=== PATIENT | female | born 1950 | race Caucasian/White ===

== ENCOUNTER → 2020-11-13 | Outpatient (CLI) | payer MEDICARE ==
[~2020-11-13] MED LIST: ASCO500 PO; ASPI81CH PO; CIPR500 PO; HYDCHL25 PO; LEVSOD75 PO; LISI20 PO; ONDA4ODT SL; Percocet 5-3251 EACH PO; THERA-D2000 UNIT PO; TRAM50 PO; ZOLP5 PO
[2020-11-13 15:08] LABS: BASOPHILS PERCENT AUTO 0 % (0-2); EOSINOPHILS ABSOLUTE AUTO 0.02 K/mm3 (0.00-0.68); EOSINOPHILS PERCENT AUTO 1 % (0-6); Hemoglobin 6.7 g/dL (11.5-16.0); IMMATURE GRAN ABSOLUTE AUTO 0.01 K/mm3 (0.00-0.10); IMMATURE GRAN PERCENT AUTO 1 % (0-1); LYMPHOCYTES ABSOLUTE AUTO 1.11 K/mm3 (0.84-5.20); LYMPHOCYTES PERCENT AUTO 54 % (21-46); MONOCYTES ABSOLUTE AUTO 0.17 K/mm3 (0.16-1.47); MONOCYTES PERCENT AUTO 8 % (4-13); Mean Corpuscular HGB 32.4 pg (26.0-34.0); Mean Corpuscular HGB Conc 31.9 g/dL (31.5-36.5); Mean Corpuscular Volume 101 fL (80-100); Mean Platelet Volume 9.6 fL (9.1-12.4); NEUTROPHILS ABSOLUTE AUTO 0.75 K/mm3 (1.96-9.15); NEUTROPHILS PERCENT AUTO 36 % (41-73); Platelet Count 72 K/mm3 (150-400); RDW Coefficient Variation 14.5 % (11.7-14.2); RDW Standard Deviation 52.9 fL (35.1-46.3); Red Blood Cell Count 2.07 M/mm3 (3.80-5.20); White Blood Cell Count 2.06 K/mm3 (4.00-11.30)
[2020-11-13 15:13] LABS: Albumin, Blood 3.6 g/dL (3.4-5.0); Albumin/Globulin Ratio 1.1 (0.8-1.8); Bilirubin, Total 0.7 mg/dL (0.1-1.0); Bun/Creatinine Ratio 19.3 (12.0-20.0); Calcium, Blood 9.4 mg/dL (8.5-10.1); Creatinine, Blood 1.92 mg/dL (0.40-1.00); Globulin, Blood 3.3 g/dL (2.2-4.0); Potassium, Blood 4.3 mmol/L (3.5-5.5); Total Protein, Blood 6.9 g/dL (6.4-8.2)
== END | disposition home or self-care (01) ==
LOC: LAB SHORT 14:13 → LAB 14:13
PROVIDERS: Internal Medicine Hematology & Oncology
DX: D46.9 Myelodysplastic syndrome, unspecified (principal)
CPT/HCPCS: 80053; 85025

== ENCOUNTER 2020-11-17 00:51 | Day surgery (SDC) | payer MEDICARE ==
[2020-11-15 13:37] LABS: BASOPHILS PERCENT AUTO 0 % (0-2); EOSINOPHILS ABSOLUTE AUTO 0.01 K/mm3 (0.00-0.68); EOSINOPHILS PERCENT AUTO 0 % (0-6); Hematocrit 21.4 % (33.0-51.0); Hemoglobin 6.8 g/dL (11.5-16.0); IMMATURE GRAN ABSOLUTE AUTO 0.03 K/mm3 (0.00-0.10); IMMATURE GRAN PERCENT AUTO 1 % (0-1); LYMPHOCYTES ABSOLUTE AUTO 1.42 K/mm3 (0.84-5.20); LYMPHOCYTES PERCENT AUTO 56 % (21-46); MONOCYTES ABSOLUTE AUTO 0.13 K/mm3 (0.16-1.47); MONOCYTES PERCENT AUTO 5 % (4-13); Mean Corpuscular HGB 32.7 pg (26.0-34.0); Mean Corpuscular HGB Conc 31.8 g/dL (31.5-36.5); Mean Corpuscular Volume 103 fL (80-100); Mean Platelet Volume 9.9 fL (9.1-12.4); NEUTROPHILS ABSOLUTE AUTO 0.97 K/mm3 (1.96-9.15); NEUTROPHILS PERCENT AUTO 38 % (41-73); Platelet Count 64 K/mm3 (150-400); RDW Coefficient Variation 14.6 % (11.7-14.2); RDW Standard Deviation 52.9 fL (35.1-46.3); Red Blood Cell Count 2.08 M/mm3 (3.80-5.20); White Blood Cell Count 2.56 K/mm3 (4.00-11.30)
[~2020-11-17 00:51] MED LIST changes: -ASCO500 PO; -CIPR500 PO; -THERA-D2000 UNIT PO
[2020-11-17] MEDS ORDERED: THERA-D2000 UNIT PO (13:54)
[2020-11-27] MEDS ORDERED: ASCO500 PO (08:37)
[2020-11-27] MEDS ORDERED: CIPR500 PO (08:37)
[2020-11-27] MEDS ORDERED: ZOLP5 PO (08:39)
== END 2020-11-17 17:20 | disposition home or self-care (01) ==
LOC: ATC 00:51 → EDSTATUS 13:30 → ATC 13:30
PROVIDERS: Internal Medicine Hematology & Oncology
DX: D46.22 Refractory anemia with excess of blasts 2 (principal); I10 Essential (primary) hypertension
CPT/HCPCS: 36415; 36430; 85025; 86850; 86900; 86901; 86923; J7050; P9016

== ENCOUNTER 2020-11-30 08:49 | Day surgery (SDC) | payer MEDICARE ==
[~2020-11-30] VITALS: Ht 170.2 cm; Wt 81.3 kg
[~2020-11-30 08:49] MED LIST changes: +ASCO500 PO; +CIPR500 PO; +THERA-D2000 UNIT PO
--- NOTE | 2020-11-30 09:37 | NUR ---
Ambulatory in Day Surgery History, Chart, Medications and Allergies reviewed before start of procedure. Lungs clear T/O to Auscultation. Pre-Op teaching done. Pt verbalizes understanding.
--- NOTE | 2020-11-30 11:13 | NUR ---
11/30/20 1113 RAM[place]NMIKIE PT NOTED BRUISING TO LEFT OUTER THIGH PRIOR TO PROCEDURE.
--- NOTE | 2020-11-30 12:35 | NUR ---
Patient up to Ambulate independently. Gait steady. Discharge instructions reviewed with patient. Patient verbalizes understanding. Copy given to patient to take home. Dressing to procedure site clean, dry to right chest wall. Right jugular vein with bandaid, oozing red blood, changed to clean bandaid. Some bruising noted to sight. Patient States Post-Procedure ride home has been arranged. Discharged via wheelchair to private car for ride home.
== END 2020-11-30 12:33 | disposition home or self-care (01) ==
LOC: ORSCMMR 08:49 → ORD 10:30 → ORSCMMR 12:33
PROVIDERS: Surgery
PROC: B5131ZA Fluoroscopy of Right Jugular Veins using Low Osmolar Contrast, Guidance (ICD-10-PCS; principal; 2020-11-30 10:30)
PROC: 05HM33Z Insertion of Infusion Device into Right Internal Jugular Vein, Percutaneous Approach (ICD-10-PCS; principal; 2020-11-30 10:30)
DX: D46.9 Myelodysplastic syndrome, unspecified (principal); I10 Essential (primary) hypertension; N18.9 Chronic kidney disease, unspecified; J45.909 Unspecified asthma, uncomplicated; Z79.899 Other long term (current) drug therapy
CPT/HCPCS: 77001; C1788; J1100; J1642; J2250; J2405; J2704; J3010; J7120

== ENCOUNTER 2021-01-02 00:18 | Day surgery (SDC) | payer MEDICARE ==
--- NOTE | 2021-01-02 10:42 | NUR ---
PT GOING TO DR. ZACARIAS OFFICE FOR TREATMENT. PORT FLUSHED WITH 20ML OF NS. DID NOT USE HEPARIN DUE TO INFUSION AT DR. ZACARIAS OFFICE. CALLED AND SPOKE WITH CORY AT DR. ZACARIAS OFFICE. INFORMED OF LOW BP DURING TRANSFUSION. PT ASYMTOMATIC AND ALSO INFORMED THAT PORT STILL ACCESSED AND NEEDS FLUSHED.
== END 2021-01-02 10:39 | disposition home or self-care (01) ==
LOC: ATC 00:18
DX: D61.818 Other pancytopenia (principal); D46.22 Refractory anemia with excess of blasts 2; E03.9 Hypothyroidism, unspecified; I10 Essential (primary) hypertension
CPT/HCPCS: 86850; 86900; 86901; 86923; J1642; J7050; P9016

== ENCOUNTER → 2021-02-09 | Outpatient (CLI) | payer MEDICARE ==
[2021-02-09 17:21] LABS: BASOPHILS PERCENT AUTO 0 % (0-2); EOSINOPHILS ABSOLUTE AUTO 0.03 K/mm3 (0.00-0.68); EOSINOPHILS PERCENT AUTO 2 % (0-6); Hematocrit 29.6 % (33.0-51.0); Hemoglobin 9.4 g/dL (11.5-16.0); Mean Corpuscular HGB 33.1 pg (26.0-34.0); Mean Corpuscular HGB Conc 31.8 g/dL (31.5-36.5); Mean Corpuscular Volume 104 fL (80-100); Mean Platelet Volume 12.3 fL (9.1-12.4); Platelet Count 118 K/mm3 (150-400); RDW Coefficient Variation 15.8 % (11.7-14.2); RDW Standard Deviation 60.5 fL (35.1-46.3); Red Blood Cell Count 2.84 M/mm3 (3.80-5.20); White Blood Cell Count 1.65 K/mm3 (4.00-11.30)
[2021-02-09 17:24] LABS: IMMATURE GRAN ABSOLUTE AUTO 0.01 K/mm3 (0.00-0.10); IMMATURE GRAN PERCENT AUTO 1 % (0-1); LYMPHOCYTES PERCENT AUTO 55 % (21-46); MONOCYTES ABSOLUTE AUTO 0.22 K/mm3 (0.16-1.47); MONOCYTES PERCENT AUTO 13 % (4-13); NEUTROPHILS ABSOLUTE AUTO 0.49 K/mm3 (1.96-9.15); NEUTROPHILS PERCENT AUTO 30 % (41-73)
[2021-02-09 18:08] LABS: BASOPHILS ABSOLUTE MAN 0.03 K/mm3 (0.00-0.23); BASOPHILS PERCENT MAN 2 % (0-2); EOSINOPHILS ABSOLUTE MAN 0.03 K/mm3 (0.00-0.68); EOSINOPHILS PERCENT MAN 2 % (0-6); LYMPHOCYTES % ATYPICAL MANUAL 6 % (0-0); LYMPHOCYTES ABSOLUTE MAN 0.97 K/mm3 (0.84-5.20); LYMPHOCYTES PERCENT MAN 53 % (21-46); MONOCYTES ABSOLUTE MAN 0.11 K/mm3 (0.16-1.47); MONOCYTES PERCENT MAN 7 % (4-13); NEUTROPHILS ABSOLUTE MAN 0.49 K/mm3 (1.96-9.15); SEG NEUTROPHILS PERCENT MAN 30 % (41-73); TOTAL CELLS COUNTED 100
== END | disposition home or self-care (01) ==
LOC: LAB SHORT 16:27 → LAB 16:27
PROVIDERS: Physician Assistant
DX: R53.83 Other fatigue (principal)
CPT/HCPCS: 85025

== ENCOUNTER → 2021-08-20 | Outpatient (CLI) | payer MEDICARE ==
[2021-08-20 14:15] LABS: BASOPHILS ABSOLUTE AUTO 0.03 K/mm3 (0.00-0.23); BASOPHILS PERCENT AUTO 1 % (0-2); EOSINOPHILS ABSOLUTE AUTO 0.02 K/mm3 (0.00-0.68); EOSINOPHILS PERCENT AUTO 1 % (0-6); Hematocrit 35.5 % (33.0-51.0); Hemoglobin 11.6 g/dL (11.5-16.0); IMMATURE GRAN ABSOLUTE AUTO 0.01 K/mm3 (0.00-0.10); IMMATURE GRAN PERCENT AUTO 0 % (0-1); LYMPHOCYTES ABSOLUTE AUTO 1.31 K/mm3 (0.84-5.20); LYMPHOCYTES PERCENT AUTO 55 % (21-46); MONOCYTES ABSOLUTE AUTO 0.23 K/mm3 (0.16-1.47); MONOCYTES PERCENT AUTO 10 % (4-13); Mean Corpuscular HGB 31.3 pg (26.0-34.0); Mean Corpuscular HGB Conc 32.7 g/dL (31.5-36.5); Mean Corpuscular Volume 96 fL (80-100); Mean Platelet Volume 11.8 fL (9.1-12.4); NEUTROPHILS ABSOLUTE AUTO 0.79 K/mm3 (1.96-9.15); NEUTROPHILS PERCENT AUTO 33 % (41-73); Platelet Count 249 K/mm3 (150-400); RDW Coefficient Variation 16.2 % (11.7-14.2); RDW Standard Deviation 57.2 fL (35.1-46.3); Red Blood Cell Count 3.71 M/mm3 (3.80-5.20); White Blood Cell Count 2.39 K/mm3 (4.00-11.30)
[2021-08-20 14:29] LABS: Albumin, Blood 3.7 g/dL (3.4-5.0); Albumin/Globulin Ratio 1.1 (0.8-1.8); Bilirubin, Total 0.6 mg/dL (0.1-1.0); Bun/Creatinine Ratio 23.1 (12.0-20.0); Calcium, Blood 9.9 mg/dL (8.5-10.1); Creatinine, Blood 1.43 mg/dL (0.40-1.00); Globulin, Blood 3.5 g/dL (2.2-4.0); Potassium, Blood 4.1 mmol/L (3.5-5.5); Total Protein, Blood 7.2 g/dL (6.4-8.2)
== END ==
LOC: LAB SHORT 13:42 → LAB 13:42
PROVIDERS: Internal Medicine Hematology & Oncology
DX: D46.9 Myelodysplastic syndrome, unspecified (principal)
CPT/HCPCS: 80053; 85025

== ENCOUNTER 2022-12-25 02:05 | Day surgery (SDC) | payer MEDICARE ==
[2022-12-25] MEDS ORDERED: TRAMADOL HCL 50 MG (13:41)
[2022-12-25] MEDS ORDERED: ONDA4ODT MM (13:41)
[2022-12-25] MEDS ORDERED: OMEP20ER PO (13:42)
== END 2022-12-25 16:45 | disposition home or self-care (01) ==
LOC: ATC 02:05
DX: D46.22 Refractory anemia with excess of blasts 2 (principal); E03.9 Hypothyroidism, unspecified; I10 Essential (primary) hypertension; C73 Malignant neoplasm of thyroid gland
CPT/HCPCS: 36430; 86850; 86900; 86901; 86923; J1642; J7050; P9016

== ENCOUNTER 2023-01-31 07:30 | Day surgery (SDC) | payer MEDICARE ==
[2023-01-31] VITALS (7 sets, daily range): BP systolic 105–131; BP diastolic 55–72
[~2023-01-31 07:30] MED LIST changes: +OMEP20ER PO; +ONDA4ODT MM; +TRAMADOL HCL 50 MG
== END 2023-01-31 11:15 | disposition home or self-care (01) ==
LOC: ATC 07:30
DX: D46.22 Refractory anemia with excess of blasts 2 (principal)
CPT/HCPCS: 36415; 36430; 86850; 86900; 86901; 86923; J1642; J7050; P9016

== ENCOUNTER 2023-05-09 01:09 | Day surgery (SDC) | payer MEDICARE ==
[2023-05-08 11:10] LABS: Hemoglobin 6.4 g/dL (11.5-16.0); Mean Corpuscular Volume 106 fL (80-100); Mean Platelet Volume 10.8 fL (9.1-12.4); RDW Coefficient Variation 15.3 % (11.7-14.2); RDW Standard Deviation 59.3 fL (35.1-46.3); Red Blood Cell Count 1.88 M/mm3 (3.80-5.20)
[2023-05-08 11:23] LABS: Albumin/Globulin Ratio 1.3 (0.8-1.8); Bilirubin, Total 0.7 mg/dL (0.1-1.0); Bun/Creatinine Ratio 23.5 (12.0-20.0); Calcium, Blood 9.8 mg/dL (8.5-10.1); Creatinine, Blood 1.62 mg/dL (0.40-1.00); Globulin, Blood 3.1 g/dL (2.2-4.0); Potassium, Blood 4.2 mmol/L (3.5-5.5); Total Protein, Blood 7.1 g/dL (6.4-8.2)
[2023-05-08 11:35] LABS: Platelet Count 43 K/mm3 (150-400); White Blood Cell Count 0.83 K/mm3 (4.00-11.30)
[2023-05-08 11:58] LABS: BASOPHILS PERCENT MAN 0 % (0-2); EOSINOPHILS PERCENT MAN 0 % (0-6); LYMPHOCYTES ABSOLUTE MAN 0.66 K/mm3 (0.84-5.20); LYMPHOCYTES PERCENT MAN 80 % (21-46); MONOCYTES PERCENT MAN 0 % (4-13); NEUTROPHILS ABSOLUTE MAN 0.16 K/mm3 (1.96-9.15); SEG NEUTROPHILS PERCENT MAN 20 % (41-73); TOTAL CELLS COUNTED 25
[2023-05-08 18:33] LABS: Hematocrit 19.8 % (33.0-51.0); Hemoglobin 6.5 g/dL (11.5-16.0); Mean Corpuscular HGB 34.8 pg (26.0-34.0); Mean Corpuscular HGB Conc 32.8 g/dL (31.5-36.5); Mean Corpuscular Volume 106 fL (80-100); Mean Platelet Volume 12.5 fL (9.1-12.4); RDW Coefficient Variation 15.1 % (11.7-14.2); RDW Standard Deviation 58.7 fL (35.1-46.3); Red Blood Cell Count 1.87 M/mm3 (3.80-5.20); White Blood Cell Count 1.04 K/mm3 (4.00-11.30)
[2023-05-08 18:50] LABS: Albumin/Globulin Ratio 1.1 (0.8-1.8); Bilirubin, Total 0.5 mg/dL (0.1-1.0); Bun/Creatinine Ratio 23.1 (12.0-20.0); Calcium, Blood 10.1 mg/dL (8.5-10.1); Creatinine, Blood 1.6 mg/dL (0.40-1.00); Globulin, Blood 3.5 g/dL (2.2-4.0); Potassium, Blood 4.1 mmol/L (3.5-5.5); Total Protein, Blood 7.5 g/dL (6.4-8.2)
[2023-05-08 18:53] LABS: Platelet Count 41 K/mm3 (150-400)
[2023-05-08 19:05] LABS: BASOPHILS ABSOLUTE MAN 0.01 K/mm3 (0.00-0.23); BASOPHILS PERCENT MAN 1 % (0-2); EOSINOPHILS PERCENT MAN 0 % (0-6); LYMPHOCYTES ABSOLUTE MAN 0.93 K/mm3 (0.84-5.20); LYMPHOCYTES PERCENT MAN 90 % (21-46); MONOCYTES ABSOLUTE MAN 0.01 K/mm3 (0.16-1.47); MONOCYTES PERCENT MAN 1 % (4-13); NEUTROPHILS ABSOLUTE MAN 0.08 K/mm3 (1.96-9.15); SEG NEUTROPHILS PERCENT MAN 8 % (41-73); TOTAL CELLS COUNTED 100
[2023-05-09] VITALS (7 sets, daily range): BP systolic 105–139; BP diastolic 53–60
== END 2023-05-09 11:05 | disposition home or self-care (01) ==
LOC: ATC 01:09 → EDSTATUS 07:30 → ATC 07:30
PROVIDERS: Internal Medicine Hematology & Oncology
DX: D46.22 Refractory anemia with excess of blasts 2 (principal); I10 Essential (primary) hypertension; E03.9 Hypothyroidism, unspecified; Z79.899 Other long term (current) drug therapy
CPT/HCPCS: 36415; 36430; 80053; 85025; 86850; 86900; 86901; 86923; J1642; J7050; P9016

== ENCOUNTER 2023-06-05 01:57 | Day surgery (SDC) | payer MEDICARE ==
[2023-06-05] VITALS (7 sets, daily range): BP systolic 98–142; BP diastolic 52–83
[2023-06-05] MEDS ORDERED: ACYC400 PO (16:22)
[2023-06-05] MEDS ORDERED: DIFLUCAN100 MG PO (16:22)
== END 2023-06-05 16:56 | disposition home or self-care (01) ==
LOC: ATC 01:57
DX: D46.22 Refractory anemia with excess of blasts 2 (principal); I10 Essential (primary) hypertension; E03.9 Hypothyroidism, unspecified; Z79.890 Hormone replacement therapy; Z79.899 Other long term (current) drug therapy
CPT/HCPCS: 36430; 86850; 86900; 86901; 86923; J1642; J7050; P9016

== ENCOUNTER 2023-07-08 11:30 | Day surgery (SDC) | payer MEDICARE ==
[2023-07-07 11:45] LABS: BASOPHILS PERCENT AUTO 0 % (0-2); EOSINOPHILS PERCENT AUTO 0 % (0-6); Hemoglobin 7.2 g/dL (11.5-16.0); IMMATURE GRAN PERCENT AUTO 0 % (0-1); LYMPHOCYTES ABSOLUTE AUTO 0.66 K/mm3 (0.84-5.20); LYMPHOCYTES PERCENT AUTO 65 % (21-46); MONOCYTES ABSOLUTE AUTO 0.05 K/mm3 (0.16-1.47); MONOCYTES PERCENT AUTO 5 % (4-13); Mean Corpuscular HGB 33.3 pg (26.0-34.0); Mean Corpuscular HGB Conc 34.3 g/dL (31.5-36.5); Mean Corpuscular Volume 97 fL (80-100); Mean Platelet Volume 12.2 fL (9.1-12.4); NEUTROPHILS PERCENT AUTO 30 % (41-73); RDW Coefficient Variation 18.9 % (11.7-14.2); RDW Standard Deviation 66.6 fL (35.1-46.3); Red Blood Cell Count 2.16 M/mm3 (3.80-5.20); White Blood Cell Count 1.01 K/mm3 (4.00-11.30)
[2023-07-07 11:56] LABS: Platelet Count 25 K/mm3 (150-400)
[~2023-07-08 11:30] MED LIST changes: +ACYC400 PO; +DIFLUCAN100 MG PO
[2023-07-08 14:40] VITALS: BP 117/58
[2023-07-08 14:59] VITALS: BP 105/61
[2023-07-08 15:57] VITALS: BP 119/57
[2023-07-08 16:27] VITALS: BP 123/68
== END 2023-07-08 16:30 | disposition home or self-care (01) ==
LOC: ATC 11:30 → EDSTATUS 11:31 → ATC 16:30
PROVIDERS: Internal Medicine Hematology & Oncology
DX: D46.22 Refractory anemia with excess of blasts 2 (principal)
CPT/HCPCS: 36415; 36430; 85025; 86850; 86900; 86901; 86923; J1642; J7050; P9016

== ENCOUNTER 2023-07-31 04:52 | Day surgery (SDC) | payer MEDICARE ==
[2023-07-30 16:02] LABS: BASOPHILS PERCENT AUTO 0 % (0-2); EOSINOPHILS ABSOLUTE AUTO 0.01 K/mm3 (0.00-0.68); EOSINOPHILS PERCENT AUTO 1 % (0-6); Hematocrit 21.5 % (33.0-51.0); Mean Corpuscular HGB 33.7 pg (26.0-34.0); Mean Corpuscular HGB Conc 32.6 g/dL (31.5-36.5); Mean Corpuscular Volume 103 fL (80-100); Mean Platelet Volume 11.1 fL (9.1-12.4); RDW Coefficient Variation 20.7 % (11.7-14.2); RDW Standard Deviation 77.3 fL (35.1-46.3); Red Blood Cell Count 2.08 M/mm3 (3.80-5.20); White Blood Cell Count 1.34 K/mm3 (4.00-11.30)
[2023-07-30 16:05] LABS: IMMATURE GRAN PERCENT AUTO 0 % (0-1); LYMPHOCYTES ABSOLUTE AUTO 0.93 K/mm3 (0.84-5.20); LYMPHOCYTES PERCENT AUTO 69 % (21-46); MONOCYTES ABSOLUTE AUTO 0.08 K/mm3 (0.16-1.47); MONOCYTES PERCENT AUTO 6 % (4-13); NEUTROPHILS ABSOLUTE AUTO 0.32 K/mm3 (1.96-9.15); NEUTROPHILS PERCENT AUTO 24 % (41-73)
[2023-07-30 16:06] LABS: Platelet Count 21 K/mm3 (150-400)
[2023-07-30 16:11] LABS: Albumin/Globulin Ratio 1.2 (0.8-1.8); Bilirubin, Total 0.4 mg/dL (0.1-1.0); Bun/Creatinine Ratio 21.8 (12.0-20.0); Calcium, Blood 9.9 mg/dL (8.5-10.1); Creatinine, Blood 1.74 mg/dL (0.40-1.00); Globulin, Blood 3.3 g/dL (2.2-4.0); Potassium, Blood 4.5 mmol/L (3.5-5.5); Total Protein, Blood 7.3 g/dL (6.4-8.2)
[2023-07-31 14:17] VITALS: BP 138/66
[2023-07-31 14:36] VITALS: BP 98/53
[2023-07-31 15:39] VITALS: BP 104/56
[2023-07-31 16:14] VITALS: BP 118/62
== END 2023-07-31 16:13 | disposition home or self-care (01) ==
LOC: ATC 04:52 → EDSTATUS 14:00 → ATC 16:13
PROVIDERS: Internal Medicine Hematology & Oncology
DX: D46.22 Refractory anemia with excess of blasts 2 (principal); E03.9 Hypothyroidism, unspecified; I10 Essential (primary) hypertension; Z79.899 Other long term (current) drug therapy; Z79.890 Hormone replacement therapy
CPT/HCPCS: 36415; 36430; 80053; 85025; 86850; 86900; 86901; 86923; J1642; J7050; P9016

== ENCOUNTER → 2023-08-27 | Outpatient (CLI) | payer MEDICARE ==
[2023-08-31 09:31] LABS: PANCREATIC ELASTASE,FECAL >800 ug/g (>=100)
== END ==
LOC: LAB SHORT 11:49 → LAB 11:49
PROVIDERS: Physician Assistant Medical
DX: R14.0 Abdominal distension (gaseous) (principal)
CPT/HCPCS: 82653; 87338

== ENCOUNTER 2023-08-29 03:04 | Day surgery (SDC) | payer MEDICARE ==
[2023-08-27 12:01] LABS: Hematocrit 21.5 % (33.0-51.0); Hemoglobin 7.2 g/dL (11.5-16.0); Mean Corpuscular HGB 34.6 pg (26.0-34.0); Mean Corpuscular HGB Conc 33.5 g/dL (31.5-36.5); Mean Corpuscular Volume 103 fL (80-100); RDW Coefficient Variation 19.1 % (11.7-14.2); RDW Standard Deviation 72.6 fL (35.1-46.3); Red Blood Cell Count 2.08 M/mm3 (3.80-5.20)
[2023-08-27 12:22] LABS: White Blood Cell Count 0.95 K/mm3 (4.00-11.30)
[2023-08-27 12:23] LABS: Platelet Count 15 K/mm3 (150-400)
[2023-08-27 12:34] LABS: BASOPHILS PERCENT MAN 0 % (0-2); EOSINOPHILS ABSOLUTE MAN 0.03 K/mm3 (0.00-0.68); EOSINOPHILS PERCENT MAN 4 % (0-6); MONOCYTES PERCENT MAN 0 % (4-13); TOTAL CELLS COUNTED 25
[2023-08-27 12:39] LABS: LYMPHOCYTES PERCENT MAN 64 % (21-46); NEUTROPHILS ABSOLUTE MAN 0.26 K/mm3 (1.96-9.15); OTHER CELL PERCENT MAN 4 % (0-0); SEG NEUTROPHILS PERCENT MAN 28 % (41-73)
[2023-08-29 09:31] VITALS: BP 102/60
[2023-08-29 09:52] VITALS: BP 99/67
[2023-08-29 10:52] VITALS: BP 108/66
[2023-08-29 11:11] VITALS: BP 114/60
[2023-08-29 11:35] LABS: TISSUE TRANSGLUTAMINAS TTG,IGA <1.02 FLU (0.00-4.99)
[2023-08-29 11:36] LABS: DEAMIDATED GLIADIN PEPTIDE,IGA <0.72 FLU (0.00-4.99)
[2023-08-29 23:19] LABS: DEAMIDATED GLIADIN PEPTIDE,IGG <0.56 FLU (0.00-4.99); TISSUE TRANSGLUTAMINASE AB,IGG <0.82 FLU (0.00-4.99)
== END 2023-08-29 11:13 | disposition home or self-care (01) ==
LOC: ATC 03:04
PROVIDERS: Internal Medicine Hematology & Oncology; Physician Assistant Medical
DX: D46.22 Refractory anemia with excess of blasts 2 (principal); E03.9 Hypothyroidism, unspecified; I10 Essential (primary) hypertension; Z79.890 Hormone replacement therapy; Z79.899 Other long term (current) drug therapy
CPT/HCPCS: 36415; 36430; 85025; 86258; 86364; 86850; 86900; 86901; 86923; J1642; J7050; P9016

== ENCOUNTER 2023-09-04 02:49 | Day surgery (SDC) | payer MEDICARE ==
[2023-09-04 13:36] VITALS: BP 131/71
[2023-09-04 13:52] VITALS: BP 120/64
[2023-09-04 14:34] VITALS: BP 114/63
[2023-09-04 15:01] VITALS: BP 114/63
[2023-09-04 16:00] VITALS: BP 121/56
[2023-09-04 16:19] VITALS: BP 117/66
== END 2023-09-04 16:21 | disposition home or self-care (01) ==
LOC: ATC 02:49
DX: D46.22 Refractory anemia with excess of blasts 2 (principal); E03.9 Hypothyroidism, unspecified; I10 Essential (primary) hypertension; Z79.899 Other long term (current) drug therapy
CPT/HCPCS: 36415; 36430; 86850; 86900; 86901; 86923; J1642; J7050; P9016; P9035

== ENCOUNTER 2023-10-01 00:58 | Day surgery (SDC) | payer OTHER ==
[2023-10-01] VITALS (8 sets, daily range): BP systolic 95–136; BP diastolic 52–75
[2023-10-01] MEDS ORDERED: ESZO1 PO (13:34)
== END 2023-10-01 17:58 | disposition home or self-care (01) ==
LOC: ATC 00:58 → EDSTATUS 13:15 → ATC 17:58
DX: D46.22 Refractory anemia with excess of blasts 2 (principal); D46.Z Other myelodysplastic syndromes
CPT/HCPCS: 36415; 36430; 86850; 86900; 86901; 86923; J1642; J7050; P9016; P9035

== ENCOUNTER 2023-10-15 02:43 | Day surgery (SDC) | payer OTHER ==
[2023-10-13 14:46] LABS: Hematocrit 24.1 % (33.0-51.0); Hemoglobin 7.9 g/dL (11.5-16.0); Mean Corpuscular HGB 31.5 pg (26.0-34.0); Mean Corpuscular HGB Conc 32.8 g/dL (31.5-36.5); Mean Corpuscular Volume 96 fL (80-100); NRBC ABSOLUTE 0.03 K/mm3 (0.00-0.02); NRBC Auto 0.8 /100 WBC (0.0-0.2); RDW Coefficient Variation 19.9 % (11.7-14.2); RDW Standard Deviation 68.8 fL (35.1-46.3); Red Blood Cell Count 2.51 M/mm3 (3.80-5.20); White Blood Cell Count 3.56 K/mm3 (4.00-11.30)
[2023-10-13 15:10] LABS: Platelet Count 6 K/mm3 (150-400)
[2023-10-13 16:30] LABS: BAND PERCENT MAN 1 % (0-8); BASOPHILS PERCENT MAN 0 % (0-2); EOSINOPHILS PERCENT MAN 0 % (0-6); LYMPHOCYTES % ATYPICAL MANUAL 1 % (0-0); LYMPHOCYTES ABSOLUTE MAN 1.49 K/mm3 (0.84-5.20); LYMPHOCYTES PERCENT MAN 41 % (21-46); MONOCYTES ABSOLUTE MAN 0.28 K/mm3 (0.16-1.47); MONOCYTES PERCENT MAN 8 % (4-13); MYELOCYTE ABSOLUTE MAN 0.07 K/mm3 (0.00-0.00); MYELOCYTE PERCENT MAN 2 % (0-0); NEUTROPHILS ABSOLUTE MAN 0.28 K/mm3 (1.96-9.15); SEG NEUTROPHILS PERCENT MAN 7 % (41-73); TOTAL CELLS COUNTED 100
[2023-10-13 16:31] LABS: OTHER CELL PERCENT MAN 40 % (0-0)
[~2023-10-15 02:43] MED LIST changes: +ESZO1 PO
[2023-10-15 08:24] VITALS: BP 111/53
[2023-10-15 09:05] VITALS: BP 91/43
[2023-10-15 10:08] VITALS: BP 100/80
== END 2023-10-15 10:10 | disposition home or self-care (01) ==
LOC: ATC 02:43 → EDSTATUS 10-05 15:45 → ATC 10-05 15:45 → LAB FUT 10-05 15:45
PROVIDERS: Internal Medicine Hematology & Oncology
DX: D46.22 Refractory anemia with excess of blasts 2 (principal); E03.9 Hypothyroidism, unspecified; I10 Essential (primary) hypertension
CPT/HCPCS: 36415; 36430; 85025; 86900; 86901; J7050; P9053

== ENCOUNTER 2023-10-28 01:37 | Day surgery (SDC) | payer OTHER ==
[2023-10-27 09:43] LABS: Mean Corpuscular HGB 32.1 pg (26.0-34.0); Mean Corpuscular HGB Conc 33.5 g/dL (31.5-36.5); Mean Corpuscular Volume 96 fL (80-100); NRBC ABSOLUTE 0.12 K/mm3 (0.00-0.02); NRBC Auto 0.3 /100 WBC (0.0-0.2); RDW Coefficient Variation 21.3 % (11.7-14.2); RDW Standard Deviation 74.6 fL (35.1-46.3); Red Blood Cell Count 1.84 M/mm3 (3.80-5.20); White Blood Cell Count 44.77 K/mm3 (4.00-11.30)
[2023-10-27 09:54] LABS: Hemoglobin 5.9 g/dL (11.5-16.0)
[2023-10-27 09:55] LABS: Hematocrit 17.6 % (33.0-51.0); Platelet Count 6 K/mm3 (150-400)
[2023-10-27 10:16] LABS: BASOPHILS PERCENT MAN 0 % (0-2); EOSINOPHILS PERCENT MAN 0 % (0-6); LYMPHOCYTES ABSOLUTE MAN 4.47 K/mm3 (0.84-5.20); LYMPHOCYTES PERCENT MAN 10 % (21-46); MONOCYTES ABSOLUTE MAN 5.82 K/mm3 (0.16-1.47); MONOCYTES PERCENT MAN 13 % (4-13); MYELOCYTE ABSOLUTE MAN 0.44 K/mm3 (0.00-0.00); MYELOCYTE PERCENT MAN 1 % (0-0); NEUTROPHILS ABSOLUTE MAN 1.79 K/mm3 (1.96-9.15); SEG NEUTROPHILS PERCENT MAN 4 % (41-73); TOTAL CELLS COUNTED 100
[2023-10-28] VITALS (9 sets, daily range): BP systolic 105–154; BP diastolic 62–77
[2023-10-28] MEDS ORDERED: NS 250 ML IV SCH (07:25)
[2023-10-30 11:15] LABS: BLASTS PERCENT MAN 72 % (0-0)
== END 2023-10-28 18:46 | disposition home or self-care (01) ==
LOC: ATC 01:37 → EDSTATUS 13:30 → ATC 13:30
PROVIDERS: Internal Medicine Hematology & Oncology
DX: D46.22 Refractory anemia with excess of blasts 2 (principal); E03.9 Hypothyroidism, unspecified; I10 Essential (primary) hypertension
CPT/HCPCS: 36415; 36430; 85025; 86850; 86900; 86901; 86923; J1642; J7050; P9016; P9035

== ENCOUNTER 2023-11-05 00:04 | Day surgery (SDC) | payer OTHER ==
[2023-11-03 09:08] LABS: Hematocrit 22.3 % (33.0-51.0); Mean Corpuscular HGB 28.9 pg (26.0-34.0); Mean Corpuscular HGB Conc 31.4 g/dL (31.5-36.5); Mean Corpuscular Volume 92 fL (80-100); Mean Platelet Volume 9.2 fL (9.1-12.4); NRBC Auto 0.4 /100 WBC (0.0-0.2); RDW Coefficient Variation 23.2 % (11.7-14.2); RDW Standard Deviation 78.5 fL (35.1-46.3); Red Blood Cell Count 2.42 M/mm3 (3.80-5.20)
[2023-11-03 09:17] LABS: Platelet Count 9 K/mm3 (150-400)
[2023-11-05] VITALS (7 sets, daily range): BP systolic 108–122; BP diastolic 55–59
[2023-11-05] MEDS ORDERED: NS 250 ML IV SCH (06:55)
== END 2023-11-05 17:00 | disposition home or self-care (01) ==
LOC: ATC 00:04
PROVIDERS: Internal Medicine Hematology & Oncology
DX: D46.22 Refractory anemia with excess of blasts 2 (principal); C73 Malignant neoplasm of thyroid gland; I10 Essential (primary) hypertension; D61.818 Other pancytopenia
CPT/HCPCS: 36415; 36430; 85027; 86850; 86900; 86901; 86923; J1642; J7050; P9016; P9035

== ENCOUNTER 2023-11-12 05:11 | Day surgery (SDC) | payer OTHER ==
[2023-11-10 12:06] LABS: Hematocrit 24.2 % (33.0-51.0); Hemoglobin 7.7 g/dL (11.5-16.0); Mean Corpuscular HGB 29.1 pg (26.0-34.0); Mean Corpuscular HGB Conc 31.8 g/dL (31.5-36.5); Mean Corpuscular Volume 91 fL (80-100); NRBC ABSOLUTE 0.37 K/mm3 (0.00-0.02); NRBC Auto 0.4 /100 WBC (0.0-0.2); RDW Coefficient Variation 21.4 % (11.7-14.2); RDW Standard Deviation 72.3 fL (35.1-46.3); Red Blood Cell Count 2.65 M/mm3 (3.80-5.20)
[2023-11-10 12:19] LABS: Platelet Count 17 K/mm3 (150-400); White Blood Cell Count 93.87 K/mm3 (4.00-11.30)
[2023-11-10 12:43] LABS: BASOPHILS PERCENT MAN 0 % (0-2); BLASTS PERCENT MAN 76 % (0-0); EOSINOPHILS PERCENT MAN 0 % (0-6); LYMPHOCYTES ABSOLUTE MAN 9.38 K/mm3 (0.84-5.20); LYMPHOCYTES PERCENT MAN 10 % (21-46); METAMYELOCYTE ABSOLUTE MAN 0.93 K/mm3 (0.00-0.00); METAMYELOCYTE PERCENT MAN 1 % (0-0); MONOCYTES ABSOLUTE MAN 2.81 K/mm3 (0.16-1.47); MONOCYTES PERCENT MAN 3 % (4-13); MYELOCYTE ABSOLUTE MAN 3.75 K/mm3 (0.00-0.00); MYELOCYTE PERCENT MAN 4 % (0-0); NEUTROPHILS ABSOLUTE MAN 5.63 K/mm3 (1.96-9.15); SEG NEUTROPHILS PERCENT MAN 6 % (41-73); TOTAL CELLS COUNTED 100
[2023-11-12] MEDS ORDERED: NS 250 ML IV SCH (06:55)
[2023-11-12 13:57] VITALS: BP 125/67
[2023-11-12 14:16] VITALS: BP 110/57
[2023-11-12 15:05] VITALS: BP 116/72
[2023-11-12 15:28] VITALS: BP 124/65
[2023-11-12 16:23] VITALS: BP 129/65
[2023-11-12 17:00] VITALS: BP 136/68
== END 2023-11-12 17:00 | disposition home or self-care (01) ==
LOC: ATC 05:11
PROVIDERS: Internal Medicine Hematology & Oncology
DX: D46.22 Refractory anemia with excess of blasts 2 (principal); E03.9 Hypothyroidism, unspecified; I10 Essential (primary) hypertension
CPT/HCPCS: 36415; 36430; 85025; 86850; 86900; 86901; 86923; J1642; J7050; P9016; P9035